=== PATIENT | male | born 1985 | race Caucasian/White ===

== ENCOUNTER → 2019-02-06 | Day surgery (SDC) | payer OTHER ==
[~2019-02-06] VITALS: Ht 175.3 cm; Wt 91.0 kg
[~2019-02-06] MED LIST: ACETAMINOPHEN 500 MG TABLET PO ONE; BUPIVACAINE-EPI 0.25%-1:200000 MPF 30 ML VIAL. INJ ONE; CHOL10003 PO; DEXAMETHASONE SOD PHOS 4 MG/ML VIAL ONE; HYDR-3164 PO; HYDROcodone/APAP 5/325MG 1 TAB TABLET PO ONE; HYDROmorphone 2 MG/ML VIAL IV PRN; IV RINGERS,LACTATED 1000ML 1,000 ML IV SCH; KETOROLAC 30 MG/ML VIAL. ONE; LIDOCAINE 1% PF 2 ML VIAL. ID PRN; LIDOCAINE 2% PF 5 ML VIAL. ONE; MORPHINE SULFATE 2 MG/ML VIAL. IV PRN; MULT1TAB52 PO; OMEG1CAP6 PO; ONDANSETRON PF 4 MG/2 ML VIAL. IV PRN; ONDANSETRON PF 4 MG/2 ML VIAL. ONE; PROCHLORPERAZINE 10 MG/2 ML VIAL. IV PRN; PROPOFOL 0 ML IV ONE; PROPOFOL 20 ML IV ONE; SEVOFLURANE 31 TO 60 MINUTES. IH ONE; ceFAZolin 2GM PREMIX 2 GM/50 ML BAG IV ONE; fentaNYL PF VIAL 100 MCG/2 ML VIAL IV PRN
--- NOTE | 2019-02-06 10:22 | PDOC4 ---
Operative Note Operative Note Date: 02/06/2019 Preoperative diagnosis: Left breast mass Postoperative diagnosis: Same Procedure. Excisional biopsy left breast Specimen: Left breast mass Surgeon: Jarrell Dictation: A she does 33-year-old male is complained of a lump at his left breast just beneath the nipple areolar complex quite painful. Procedure of e xcisional biopsy was explained to the patient in detail risk benefits were also discussed including bleeding infection alternatives to this procedure also discussed with the patient who seemed to understand and gave both verbal and written consent to have the procedure performed. Patient was taken to the operating room placed the supine position general anesthesia was initiated once patient was sleep and intubated his left chest was prepped and draped usual sterile fashion using ChloraPrep. An area around the nipple areolar complex was injected with quarter percent Marcaine with epinephrine incision was made with 15 blade scalpel this is carried down through subcutaneous tissue using electrocautery divided hemostasis the mass was completely excised using cautery and sharp dissection and sent for pathology. Wound was then closed in 2 layers a deep layer a single interrupted 3-0 Vicryl and skin was approximate for septic and a Monocryl Mastisol Steri-Strips and island dressing were applied. The patient was awakened and extubated in the operating room taken to recovery in stable condition all sponge instrument needle counts listed as correct estimated blood loss 5 mL. BERTA VEE MD Feb 06, 2019 10:22
--- NOTE | 2019-02-06 10:23 | DISCH ---
DISCHARGE INSTRUCTIONS Condition on Discharge Condition on Discharge: Stable Activity After Discharge Activity Instructions for Disc: Activity as tolerated Diet after Discharge Diet after Discharge: Regular Wound Incision Care Other wound/incision instructi: May shower in 24 hours Contacting the after DC Call your doctor for: If your condition worsens Follow-Up Follow up with: Dr. Vee in 2 weeks BERTA VEE MD Feb 06, 2019 10:23
[2019-02-06 11:26] VITALS: BP 119/84
--- NOTE | 2019-02-10 14:07 | PATHOLOGY ---
[facility] Accession Number: [id number] . 01 Material submitted: . breast - LEFT BREAST MASS. Modifiers: left . 01 Clinical history: . Gynecomastia left breast . 02 Diagnosis: Breast mass, left, excision: - Gynecomastia. - Cystic apocrine metaplasia, focal. - No evidence of atypia or malignancy. (SKM:pit; 02/10/2019) QTP 02/10/2019 0916 Local . 02 Electronically signed: . Julius Ray MD, Pathologist NPI- [id number] . 01 Gross description: . The specimen is received in formalin, labeled "Sherif Avendano, left breast mass" and consists of an unoriented 5 g segment of dense pink-yellow fibroadipose tissue measuring 3.8 x 2.8 x 1.3 cm. The specimen is inked black. It is serially sectioned revealing fibrotic pink-boone cut surfaces and no masses or lesions. The specimen is entirely submitted in A1-A5. The specimen was collected at 10:10 AM on 02/06/2019 and placed in formalin at 10:10 AM. The cold ischemic time is less than 1 minute and the total formalin fixation time is greater than 6 hours but less than 72 hours. (SDY; 02/06/2019) SYU/SYU 02/06/2019 1624 Local . 02 Pathologist provided ICD-10: N62, N60.82 . 02 CPT . 530898 Specimen Comment: A courtesy copy of this report has been sent to Specimen Comment: [phone], . Specimen Comment: Report sent to / DR COOPER Performed at: [address], [place], [place] [id number] MD Cj Mendosa MD Phone: [phone] Performed at: [address] [id number] MD Efraín Dickson MD Phone: [phone]
== END ==
LOC: SURG 07:29
PROVIDERS: ATTEND Surgery
DX: N63.20 Unspecified lump in the left breast, unspecified quadrant (principal); N62 Hypertrophy of breast
CPT/HCPCS: 19120; 88305; A7015; J0696; J1100; J1885; J2001; J2405; J2704